=== PATIENT | female | born 1950 | race Caucasian/White ===

== ENCOUNTER 2016-09-14 16:51 | Inpatient (IN) | payer MEDICARE, BC ==
[~2016-09-14 16:51] MED LIST: HYDROCODON-ACE1 EA16 PO; LEVAQUIN750 M1 PO; POTASSIUM CHLO20 ME3 PO; PROLIA60 MG/1 M1 SC; PROTONIX40 M2 PO; TYLENOL EXTRA500 M1 PO; VIBRAMYCIN100 M1 PO; VITAMIN D1000 UNI2 PO; XANAX0.25 M1 PO; [UNRECOGNIZED DRUG - OTHER]
[2016-09-14] MEDS ORDERED: FUROSEMIDE40 M2 PO (17:33)
== END 2016-09-14 20:40 | disposition other institution (70) | DRG 432 ==
LOC: CCU 16:51
PROVIDERS: ADMIT Internal Medicine
DX: K74.69 Other cirrhosis of liver (principal); A41.9 Sepsis, unspecified organism; R65.20 Severe sepsis without septic shock; N17.9 Acute kidney failure, unspecified; K83.0 Cholangitis; E87.2 Acidosis; D68.4 Acquired coagulation factor deficiency; K76.6 Portal hypertension; R18.8 Other ascites; I85.10 Secondary esophageal varices without bleeding; J44.9 Chronic obstructive pulmonary disease, unspecified; F41.9 Anxiety disorder, unspecified; Z85.07 Personal history of malignant neoplasm of pancreas; Z85.05 Personal history of malignant neoplasm of liver; Z90.49 Acquired absence of other specified parts of digestive tract; Z92.3 Personal history of irradiation; Z92.21 Personal history of antineoplastic chemotherapy; Z87.11 Personal history of peptic ulcer disease; Z80.0 Family history of malignant neoplasm of digestive organs; I10 Essential (primary) hypertension; M19.90 Unspecified osteoarthritis, unspecified site; M81.0 Age-related osteoporosis without current pathological fracture; Z79.891 Long term (current) use of opiate analgesic; I86.4 Gastric varices; Z86.010 Personal history of colon polyps; D47.3 Essential (hemorrhagic) thrombocythemia; E80.6 Other disorders of bilirubin metabolism; T85.898A Other specified complication of other internal prosthetic devices, implants and grafts, initial encounter; Y83.1 Surgical operation with implant of artificial internal device as the cause of abnormal reaction of the patient, or of later complication, without mention of misadventure at the time of the procedure
CPT/HCPCS: J7030